=== PATIENT | female | born 1935 | race Caucasian/White ===

== ENCOUNTER 2022-06-13 21:11 | Inpatient (IN) | payer MEDICARE, OTHER ==
[~2022-06-13] VITALS: Ht 165.1 cm; Wt 61.3 kg
[2022-06-13] MEDS ORDERED: B12 ACTIVE1000 MCG PO (22:32)
[2022-06-13] MEDS ORDERED: CALCIUM +D & M1 EACH PO (22:33)
[2022-06-13] MEDS ORDERED: HUMULIN N100 UNIT/3 SC ×2 (22:34→22:35)
[2022-06-13] MEDS ORDERED: JANUVIA50 MG PO (22:36)
[2022-06-13] MEDS ORDERED: LASIX40 MG PO (22:37)
[2022-06-13] MEDS ORDERED: POTASSIUM CHLO10 MEQ PO (22:37)
[2022-06-13] MEDS ORDERED: PRAVACHOL20 MG PO (22:38)
[2022-06-13] MEDS ORDERED: AMIODARONE HCL200 MG PO (22:38)
[2022-06-13] MEDS ORDERED: XARELTO15 MG PO (22:39)
[2022-06-13] MEDS ORDERED: LOPRESSOR25 MG PO (22:39)
[2022-06-13] MEDS ORDERED: FEOSOL325 MG PO (22:40)
[2022-06-13] MEDS ORDERED: ZYRTEC10 M3 PO (22:40)
[2022-06-13] MEDS ORDERED: SYNTHROID50 MCG PO (22:41)
[2022-06-14 06:53] LABS: BASOPHIL 0.4 % (0-2); EOSINOPHIL 9.3 % (0-7); HCT 40.5 % (37.0-47.0); HGB 12.7 g/dl (12.5-16.0); LYMPHOCYTE 8.6 % (15-48); MCH 30.9 pg (25.0-31.0); MCHC 31.4 g/dL (32.0-36.0); MCV 98.5 fL (78.0-100.0); MONOCYTE 5.2 % (0-12); NEUTROPHIL 76.1 % (41-80); NRBC 0; PLT 170 K/uL (150-400); RBC 4.11 M/uL (4.20-5.40); WBC 14.8 K/uL (4.0-10.5)
[2022-06-14 07:00] LABS: INR 1.32 (0.9-1.2)
[2022-06-14 07:16] LABS: ALBUMIN 3.1 g/dL (3.4-5.0); BILIRUBIN - TOTAL 0.6 mg/dL (0.2-1.0); BUN/CREAT RATIO (CALC) 17.9 RATIO; CREATININE 1.12 mg/dL (0.51-0.95); GLOBULIN (CALCULATION) 2.8 g/dL; TOTAL PROTEIN 5.9 g/dL (6.4-8.2)
== END 2022-06-15 13:55 | disposition other institution (70) | DRG 536 ==
LOC: FMS 21:11
PROVIDERS: Nurse Practitioner; ADMIT Internal Medicine
DX: S72.002A Fracture of unspecified part of neck of left femur, initial encounter for closed fracture (principal); I48.20 Chronic atrial fibrillation, unspecified; I42.9 Cardiomyopathy, unspecified; I50.9 Heart failure, unspecified; W19.XXXA Unspecified fall, initial encounter; I25.10 Atherosclerotic heart disease of native coronary artery without angina pectoris; I11.0 Hypertensive heart disease with heart failure; I49.5 Sick sinus syndrome; E78.5 Hyperlipidemia, unspecified; W01.0XXA Fall on same level from slipping, tripping and stumbling without subsequent striking against object, initial encounter; E11.649 Type 2 diabetes mellitus with hypoglycemia without coma; Z83.3 Family history of diabetes mellitus; Z82.49 Family history of ischemic heart disease and other diseases of the circulatory system; Y92.009 Unspecified place in unspecified non-institutional (private) residence as the place of occurrence of the external cause; Z95.1 Presence of aortocoronary bypass graft; Z79.01 Long term (current) use of anticoagulants; Z95.0 Presence of cardiac pacemaker; Z90.49 Acquired absence of other specified parts of digestive tract; Z88.8 Allergy status to other drugs, medicaments and biological substances
CPT/HCPCS: 36415; 73100; 73130; 80053; 83036; 85025; 85610; 94010; 94760; J0696; J2270; J2405